=== PATIENT | male | born 1945 | race Caucasian/White ===

== ENCOUNTER 2020-01-29 23:59 | Emergency (ER) | payer MEDICARE, BC ==
--- NOTE | 2020-01-30 00:11 | EDM.PDOC ---
ED HPI GENERAL MEDICAL PROBLEM - General Chief Complaint: Respiratory Problem Stated Complaint: SOB Time Seen by Provider: 01/30/20 00:05 Source of Information: Reports: Patient History Limitations: Reports: No Limitations - History of Present Illness INITIAL COMMENTS - FREE TEXT/NARRATIVE: SOB with 5 # weight gain over 2- 5 days. Hx CHF in past. No chest pain. Reports is on fluid pill but doesn't like to take. took one earlier tonight. Has not helped yet. Feels chest is getting rattly. - Related Data Allergies Allergy/AdvReac Type Severity Reaction Status Date / Time canagliflozin [From Invokana] Allergy Other Verified 05/13/15 06:13 hydrochlorothiazide Allergy Diarrhea Verified 01/30/20 00:14 Home Meds: Home Meds Benazepril [Lotensin] 40 mg PO DAILY 05/07/15 [History] Fenofibric Acid (Choline) [Fenofibric Acid] 160 mg PO DAILY 05/07/15 [History] Fish Oil/[place]-3 Fatty Acids [Fish Oil 1,000 MG] 2,000 mg PO DAILY 05/07/15 [History] Fluticasone Propionate [Flonase Allergy Relief] 2 spray NASBOTH DAILY PRN 05/07/15 [History] Omeprazole [Prilosec] 1 cap PO DAILY 05/07/15 [History] metFORMIN [Glucophage] 1 tab PO BIDMEALS 05/07/15 [History] Acetaminophen [Tylenol] 650 mg PO Q4HR PRN 09/03/18 [History] Aspirin [Ecotrin EC] 81 mg PO DAILY 09/03/18 [History] Ezetimibe [Zetia] 10 mg PO DAILY 09/03/18 [History] amLODIPine [Norvasc] 5 mg PO DAILY 09/03/18 [History] Furosemide 20 mg PO DAILY PRN 01/27/20 [History] Isosorbide Mononitrate [Imdur] 30 mg PO DAILY 01/27/20 [History] Metoprolol Succinate [Toprol XL 50mg] 50 mg PO DAILY 01/27/20 [History] Clopidogrel [Plavix] 75 mg PO DAILY 01/28/20 [History] Past Medical History HEENT History: Reports: Hard of Hearing Other HEENT History: BILAT HEARING AIDES Cardiovascular History: Reports: CAD, High Cholesterol, Hypertension Respiratory History: Reports: None Gastrointestinal History: Reports: GERD Genitourinary History: Reports: None Other Genitourinary History: urinary frequency Musculoskeletal History: Reports: None, Arthritis, Gout Neurological History: Reports: None Psychiatric History: Reports: None Endocrine/Metabolic History: Reports: Diabetes, Type II, Obesity/BMI 30+ Hematologic History: Reports: None Immunologic History: Reports: None Oncologic (Cancer) History: Reports: None Other Oncologic History: skin lesion from nose removed Dermatologic History: Reports: None - Past Surgical History HEENT Surgical History: Reports: Cataract Surgery Cardiovascular Surgical History: Reports: Coronary Artery Stent, Other (See Below) ED ROS GENERAL - Review of Systems Review Of Systems: Comprehensive ROS is negative, except as noted in HPI. ED EXAM, GENERAL - Physical Exam Exam: See Below Exam Limited By: No Limitations General Appearance: Alert, Anxious, Mild Distress Eye Exam: Bilateral Eye: EOMI Ears: Normal External Exam Nose: Normal Inspection, Normal Mucosa Throat/Mouth: Normal Inspection Head: Atraumatic, Normocephalic Neck: Normal Inspection, Supple Respiratory/Chest: No Respiratory Distress, Crackles (mid to base bilateral). No: Wheezing, Stridor Cardiovascular: Normal Peripheral Pulses, Regular Rate, Rhythm, No Edema GI/Abdominal: Normal Bowel Sounds, Soft Back Exam: Full Range of Motion Extremities: Normal Inspection, Normal Range of Motion Neurological: Alert, Oriented, Normal Cognition Psychiatric: Normal Affect Skin Exam: Warm, Dry, Intact, Normal Color Course - Vital Signs Last Recorded V/S: Last Vital Signs Temp 97.5 F 01/30/20 00:03 Pulse 78 01/30/20 01:25 Resp 19 01/30/20 01:25 BP 157/52 H 01/30/20 01:25 Pulse Ox 98 01/30/20 01:25 - Orders/Labs/Meds Labs: Laboratory Tests 01/30/20 01/30/20 01/30/20 Range/Units 00:10 00:10 00:10 WBC 7.0 (5.0-10.0) 10^3/uL RBC 4.18 L (4.6-6.2) 10^6/uL Hgb 13.3 L (14.0-18.0) g/dL Hct 39.8 L (40.0-54.0) % MCV 95.2 (80-100) fL MCH 31.8 (27.0-34.0) pg MCHC 33.4 (33.0-35.0) g/dL Plt Count 230 (150-450) 10^3/uL Neut % (Auto) 46.4 (42.2-75.2) % Lymph % (Auto) 41.2 (20.5-50.1) % [place] % (Auto) 7.7 (2-8) % Eos % (Auto) 4.3 H (1.0-3.0) % Baso % (Auto) 0.4 (0.0-1.0) % PT 10.0 (9.0-12.0) SEC INR 1.1 (0.9-1.2) Sodium 140 (136-145) mmol/L Potassium 4.0 (3.5-5.1) mmol/L Chloride 104 (98-107) mmol/L Carbon Dioxide 28 (21-32) mmol/L Anion Gap 12.0 (7-13) mEq/L BUN 19 H (7-18) mg/dL Creatinine 1.50 H (0.70-1.30) mg/dL Est Cr Clr Drug Dosing 40.39 mL/min Estimated GFR (MDRD) 46 BUN/Creatinine Ratio 12.7 (No establ ref range) Glucose 133 H (74-99) mg/dL Lactic Acid (0.4-2.0) mmol/L Calcium 9.5 (8.5-10.1) mg/dL Total Bilirubin 0.4 (0.2-1.0) mg/dL AST 16 (15-37) U/L ALT 24 (16-63) U/L Alkaline Phosphatase 34 L (46-116) U/L Troponin I < 0.017 (0.000-0.056) ng/mL B-Natriuretic Peptide 580 H (0-100) pg/ml Total Protein 7.7 (6.4-8.2) g/dL Albumin 4.0 (3.4-5.0) g/dL Globulin 3.7 Albumin/Globulin Ratio 1.1 SARS CoV-2 RNA Rapid SUJATA (NEGATIVE) 01/30/20 01/30/20 Range/Units 00:10 00:15 WBC (5.0-10.0) 10^3/uL RBC (4.6-6.2) 10^6/uL Hgb (14.0-18.0) g/dL Hct (40.0-54.0) % MCV (80-100) fL MCH (27.0-34.0) pg MCHC (33.0-35.0) g/dL Plt Count (150-450) 10^3/uL Neut % (Auto) (42.2-75.2) % Lymph % (Auto) (20.5-50.1) % [place] % (Auto) (2-8) % Eos % (Auto) (1.0-3.0) % Baso % (Auto) (0.0-1.0) % PT (9.0-12.0) SEC INR (0.9-1.2) Sodium (136-145) mmol/L Potassium (3.5-5.1) mmol/L Chloride (98-107) mmol/L Carbon Dioxide (21-32) mmol/L Anion Gap (7-13) mEq/L BUN (7-18) mg/dL Creatinine (0.70-1.30) mg/dL Est Cr Clr Drug Dosing mL/min Estimated GFR (MDRD) BUN/Creatinine Ratio (No establ ref range) Glucose (74-99) mg/dL Lactic Acid 1.5 (0.4-2.0) mmol/L Calcium (8.5-10.1) mg/dL Total Bilirubin (0.2-1.0) mg/dL AST (15-37) U/L ALT (16-63) U/L Alkaline Phosphatase (46-116) U/L Troponin I (0.000-0.056) ng/mL B-Natriuretic Peptide (0-100) pg/ml Total Protein (6.4-8.2) g/dL Albumin (3.4-5.0) g/dL Globulin Albumin/Globulin Ratio SARS CoV-2 RNA Rapid SUJATA Negative (NEGATIVE) Meds: Medications Discontinued Medications Generic Name Dose Route Start Last Admin Trade Name Freq PRN Reason Stop Dose Admin Furosemide 40 mg 01/30/20 00:16 01/30/20 00:21 Lasix IVPUSH 01/30/20 00:17 40 mg NOW ONE Administration - Re-Assessments/Exams Free Text/Narrative Re-Assessment/Exam: 01/30/20 06:47 Voided approximately 6 times. Reports sx resolved. Has had no chest pain or cough. Vitals stable. No fever, no change in oxygen saturation. Departure - Departure Time of Disposition: :27 Disposition: Home, Self-Care 01 Condition: Good Clinical Impression: SOB (shortness of breath), Noncompliance w/medication treatment due to intermit use of medication Pulmonary edema Qualifiers: Chronicity: acute Qualified Code(s): J81.0 - Acute pulmonary edema - Discharge Information *PRESCRIPTION DRUG MONITORING PROGRAM REVIEWED*: No Instructions: Pulmonary Edema, [id number] Forms: ED Department Discharge Care Plan Goals: Take Lasix as prescribed limit salt intake clinic follow up Urgent follow up if symptoms worsen Sepsis Event Note (ED) - Focused Exam Vital Signs: Vital Signs Temp Pulse Resp BP Pulse Ox 01/30/20 01:25 78 19 157/52 H 98 01/30/20 00:03 97.5 F 80 19 171/65 H 99
[2020-01-30] MEDS ORDERED: Furosemide 40 MG/4 ML VIAL IVPUSH ONE (00:16)
[2020-01-30 00:44] LABS: CHLORIDE,CL 104 mmol/L (98-107); SODIUM,NA 140 mmol/L (136-145)
--- NOTE | 2020-01-30 01:20 | CR ---
PROCEDURE INFORMATION: Exam: XR Chest, 1 View Exam date and time: 01/30/2020 12:57 AM Age: 74 years old Clinical indication: Shortness of breath; Additional info: SOB TECHNIQUE: Imaging protocol: XR of the chest Views: 1 view. COMPARISON: CT Chest w Cont 02/13/2017 1:59 PM FINDINGS: Lungs: There is some indistinctness pulmonary vasculature and hazy perihilar infrahilar opacities present, findings that could represent pulmonary edema. Pleural space: Unremarkable. No pleural effusion. No pneumothorax. Heart/Mediastinum: Unremarkable. No cardiomegaly. Bones/joints: Unremarkable. IMPRESSION: Probable mild pulmonary edema.
[2020-01-30 01:26] VITALS: BP 157/52; PULSE 78
== END 2020-01-30 01:44 | disposition home or self-care (01) ==
LOC: DL.ED 23:59
DX: J81.0 Acute pulmonary edema (principal); I25.10 Atherosclerotic heart disease of native coronary artery without angina pectoris; E78.00 Pure hypercholesterolemia, unspecified; I10 Essential (primary) hypertension; K21.9 Gastro-esophageal reflux disease without esophagitis; M10.9 Gout, unspecified; E11.9 Type 2 diabetes mellitus without complications; E66.9 Obesity, unspecified; Z68.32 Body mass index [BMI] 32.0-32.9, adult; Z91.14 Patient's other noncompliance with medication regimen; Z88.8 Allergy status to other drugs, medicaments and biological substances; Z79.82 Long term (current) use of aspirin; Z79.84 Long term (current) use of oral hypoglycemic drugs; Z79.899 Other long term (current) drug therapy
CPT/HCPCS: 36415; 71045; 80053; 83605; 83880; 84484; 85025; 85610; 93005; 96374; 99285; J1940; U0002; 99283

== ENCOUNTER 2022-03-06 15:42 | Emergency (ER) | payer MEDICARE, BC ==
[2022-03-06 15:51] VITALS: BP 154/65; PULSE 116
[2022-03-06] MEDS ORDERED: Furosemide 40 MG/4 ML VIAL IVPUSH ONE (16:20)
[2022-03-06 16:31] LABS: ANION GAP 14.9 mEq/L (7-13)
[2022-03-06 16:58] LABS: CORONAVIRUS COVID-19 NAA NEGATIVE (NEGATIVE)
[2022-03-06] MEDS ORDERED: Aspirin 81 MG Tab.Chew PO ONE (18:51)
[2022-03-06] MEDS ORDERED: Heparin Sodium 5,000 Units/ML Vial IVPUSH ONE (18:52)
[2022-03-06] MEDS ORDERED: Heparin Sodium/0.45% NaCl 25,000 UNITS/500 ML BAG IV ONE (18:53)
== END 2022-03-06 21:20 ==
LOC: DL.ED 15:42
DX: I21.4 Non-ST elevation (NSTEMI) myocardial infarction (principal); R79.89 Other specified abnormal findings of blood chemistry; I25.10 Atherosclerotic heart disease of native coronary artery without angina pectoris; E11.9 Type 2 diabetes mellitus without complications; I10 Essential (primary) hypertension; E66.9 Obesity, unspecified; Z68.33 Body mass index [BMI] 33.0-33.9, adult; Z88.8 Allergy status to other drugs, medicaments and biological substances; Z79.899 Other long term (current) drug therapy; Z79.82 Long term (current) use of aspirin; Z79.84 Long term (current) use of oral hypoglycemic drugs; Z20.822 Contact with and (suspected) exposure to COVID-19
CPT/HCPCS: 0240U; 36415; 71045; 80053; 83605; 83880; 84484; 85025; 85610; 85730; 93005; 96365; 96366; 96375; 99285; A9270; J1644; J1940

== ENCOUNTER 2025-03-08 07:28 | Emergency (ER) | payer BC, MEDICARE ==
[2025-03-08 08:22] LABS: BASOPHILS PERCENT AUTO 0.3 % (0.0-1.0); EOSINOPHILS PERCENT AUTO 2.0 % (1.0-3.0); LYMPHOCYTES PERCENT AUTO 25.2 % (20.5-50.1); MONOCYTES PERCENT AUTO 6.6 % (2-8); NEUTROPHILS PERCENT AUTO 65.9 % (42.2-75.2); PLATELET COUNT,PLT 219 10^3/uL (150-450); RED BLOOD CELL COUNT 3.85 10^6/uL (4.6-6.2); WHITE BLOOD CELL COUNT,WBC 8.0 10^3/uL (5.0-10.0)
[2025-03-08 08:39] LABS: A/G RATIO 1.0; ALANINE AMINOTRANSFERASE,ALT 20 U/L (16-63); ASPARTATE AMNIOTRANSFERASE,AST 23 U/L (15-37); BILIRUBIN TOTAL 0.4 mg/dL (0.2-1.0); BLOOD UREA NITROGEN,BUN 37 mg/dL (7-18); CARBON DIOXIDE,CO2 24 mmol/L (21-32); CHLORIDE,CL 109 mmol/L (98-107); CREATININE 2.16 mg/dL (0.70-1.30); EST CRCL DRUG DOSING (CG) 25.93 mL/min; ESTIMATED GFR 30 mL/min (>=60); ETHANOL BLOOD MEDICAL < 3 mg/dL (0); GLUCOSE RANDOM 169 mg/dL (70-99); POTASSIUM,K 4.7 mmol/L (3.5-5.1); PROTEIN TOTAL,TP 7.3 g/dL (6.4-8.2); SODIUM,NA 143 mmol/L (136-145)
[2025-03-08 08:40] LABS: LACTIC ACID 1.8 mmol/L (0.4-2.0)
[2025-03-08 08:41] LABS: INR 1.0 (0.9-1.2); PTT,PARTIAL THROMBOPLSTIN TIME 22.0 SEC (22.0-34.0)
[2025-03-08] MEDS: Ondansetron 4 MG/2 ML SDV IVPUSH ONE (08:58)
[2025-03-08] MEDS: Lactated Ringers 500 ML IV ONE (09:05)
[2025-03-08] MEDS: Lactated Ringers 500 ML IV SCH (10:28)
[2025-03-08] MEDS: Take Home: Ondansetron 4 MG Tab.DIS, 5 Tab Pack PO ONE (11:06)
[2025-03-08 11:16] VITALS: BP 139/63; PULSE 64
== END 2025-03-08 11:14 | disposition home or self-care (01) ==
LOC: DL.ED 07:28
DX: K52.9 Noninfective gastroenteritis and colitis, unspecified (principal); I10 Essential (primary) hypertension; E11.9 Type 2 diabetes mellitus without complications; I25.2 Old myocardial infarction; I25.10 Atherosclerotic heart disease of native coronary artery without angina pectoris; E78.00 Pure hypercholesterolemia, unspecified; E66.9 Obesity, unspecified; Z95.5 Presence of coronary angioplasty implant and graft; Z87.891 Personal history of nicotine dependence; Z88.8 Allergy status to other drugs, medicaments and biological substances; Z79.4 Long term (current) use of insulin; Z79.82 Long term (current) use of aspirin; Z79.899 Other long term (current) drug therapy; Z68.29 Body mass index [BMI] 29.0-29.9, adult
CPT/HCPCS: 70450; 80053; 80307; 83605; 83735; 84484; 85025; 85610; 85730; 87428; 93005; 96361; 96374; 99284; J2405; J7120; Q0162; 93010